=== PATIENT | female | born 1990 | race Two or more races ===

== ENCOUNTER 2017-06-03 14:55 | Emergency (ER) | payer MEDICAID ==
[~2017-06-03] VITALS: Ht 160 cm; Wt 83.9 kg
[2017-06-03 15:21] VITALS: BP 127/81
== END 2017-06-03 19:11 | disposition home or self-care (01) ==
LOC: EDBD 14:55 → ER 15:03
DX: S01.91XA Laceration without foreign body of unspecified part of head, initial encounter (principal); M54.5 Low back pain; R07.9 Chest pain, unspecified; V73.5XXA Driver of bus injured in collision with car, pick-up truck or van in traffic accident, initial encounter; Y93.89 Activity, other specified; Y92.89 Other specified places as the place of occurrence of the external cause; Y99.8 Other external cause status
CPT/HCPCS: 70450; 70486; 71020